=== PATIENT | male | born 1985 | race Caucasian/White ===

== ENCOUNTER 2021-08-23 15:17 | Emergency (ER) | payer OTHER ==
[2021-08-23 16:23] LABS: HEMOGLOBIN 13.3 gm/dl (14.0-17.5); RED BLOOD COUNT 4.53 M/UL (4.20-5.50); WHITE BLOOD COUNT 10.6 K/UL (4.5-11.0)
[2021-08-23 16:42] LABS: BUN/CREATININE RATIO 11 (0-10)
[2021-08-23] MEDS ORDERED: HYGROTON TAB 2525 MG PO (17:48)
== END 2021-08-23 18:00 | disposition home or self-care (01) ==
LOC: ER1 15:17
PROVIDERS: Emergency Medicine
DX: I10 Essential (primary) hypertension (principal); F17.290 Nicotine dependence, other tobacco product, uncomplicated; Z88.0 Allergy status to penicillin
CPT/HCPCS: 80053; 82550; 82553; 84484; 85025; 93005; 99283

== ENCOUNTER → 2021-08-26 | Outpatient (CLI) | payer OTHER ==
[~2021-08-26] MED LIST: HYGROTON TAB 2525 MG PO
== END ==
LOC: KOH-I 11:30
DX: M79.601 Pain in right arm (principal); M25.531 Pain in right wrist; M79.89 Other specified soft tissue disorders
CPT/HCPCS: 73090; 73110